=== PATIENT | male | born 1995 | race Hispanic/Latino ===

== ENCOUNTER → 2023-12-21 | Emergency (ER) | payer SELFPAY ==
[~2023-12-21] MED LIST: IBUPROFEN 400 MG TAB ONE; SILVER SULFADIAZINE 1% 25 GM TOP ONE; TRAMADOL HCL 50 MG TAB ONE
--- OUTSIDE RECORDS SUMMARY | 2023-12-21 01:47 | XMS REPORT | Continuity of Care Document ---
Author Name Unknown Address [address] [place] [address] [address] [id number] [facility] thconnect Address [address] [facility] [address] [place] [address] Care Team Providers Care Pattern Ruler Name Role Phone ANEL ATRHUR Attending Clinician KENAN Weaver Attending Clinician Unavailable Payers Payer Name Policy Type Policy Number Effective Date Expirati on Date Source [employer] [facility] [employer] 2 [id number] 2023 00:00:00 Encounters Start Date/Time End Date/Time Encounter Type Admission Type Attending Clinicians Care Facility Care Department Encounter ID Source 2023-04-23 14:15:00 2023-04-23 14:15:00 Outpatient ANEL ARTHUR [id number] Ros[facility]ford 2023-04-04 14:15:00 2023-04-04 14:15:00 Outpatient ANEL ARTHUR [id number] Ros[facility] Radford 2023-03-27 13:30:00 2023-03-27 13:30:00 Outpatient KENAN MÁRQUEZ [id number] Ros[facility] Radford
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
[2023-12-21 03:57] VITALS: BP 152/92; TEMP 98; O2SAT 100
== END ==
LOC: ER 01:44
DX: T23.291A Burn of second degree of multiple sites of right wrist and hand, initial encounter (principal)
CPT/HCPCS: 99283